=== PATIENT | male | born 2000 | race Caucasian/White ===

== ENCOUNTER 2020-11-06 01:46 | Emergency (ER) | payer OTHER ==
[2020-11-06] MEDS ORDERED: ACETAMINOPHEN 325 MG TABLET PO ONE ×2 (02:12→04:19)
[2020-11-06] MEDS ORDERED: CYCLOBENZAPRINE HCL 10 MG TABLET PO ONE (04:19)
[2020-11-06] MEDS ORDERED: KETOROLAC TROMETHAMINE 60 MG/2 ML SDV IM ONE (04:42)
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
[2020-11-06 07:07] VITALS: BP 109/54
== END 2020-11-06 07:06 | disposition home or self-care (01) ==
LOC: ER 01:46
DX: S01.01XA Laceration without foreign body of scalp, initial encounter (principal); S09.93XA Unspecified injury of face, initial encounter; V89.2XXA Person injured in unspecified motor-vehicle accident, traffic, initial encounter
CPT/HCPCS: 99285; 96372; 71045; 70450; 70486; J1885